=== PATIENT | male | born 1980 | race Hispanic/Latino ===

== ENCOUNTER 2021-08-28 05:30 | Emergency (ER) | payer SELFPAY ==
[~2021-08-28] VITALS: Ht 162.6 cm; Wt 74.0 kg
[2021-08-28 08:37] VITALS: BP 147/87
== END 2021-08-28 08:37 | disposition home or self-care (01) | DRG 605 ==
LOC: ED 05:30
PROC: 0HQ1XZZ Repair Face Skin, External Approach (ICD-10-PCS; principal; 2021-08-28)
PROC: 0HQCXZZ Repair Left Upper Arm Skin, External Approach (ICD-10-PCS; 2021-08-28)
DX: S01.81XA Laceration without foreign body of other part of head, initial encounter (principal); S41.112A Laceration without foreign body of left upper arm, initial encounter; F17.210 Nicotine dependence, cigarettes, uncomplicated; Y00.XXXA Assault by blunt object, initial encounter; X99.1XXA Assault by knife, initial encounter; Y92.009 Unspecified place in unspecified non-institutional (private) residence as the place of occurrence of the external cause

== ENCOUNTER 2021-09-01 09:52 | Emergency (ER) | payer SELFPAY ==
[~2021-09-01] VITALS: Ht 162.6 cm; Wt 80.0 kg
[2021-09-01 10:05] VITALS: BP 132/63
== END 2021-09-01 11:15 | disposition home or self-care (01) | DRG 950 ==
LOC: ED 09:52
DX: S51.812D Laceration without foreign body of left forearm, subsequent encounter (principal); X58.XXXD Exposure to other specified factors, subsequent encounter; F17.200 Nicotine dependence, unspecified, uncomplicated